=== PATIENT | male | born 1990 | race American Indian/Alaskan Native ===

== ENCOUNTER 2020-07-22 05:28 | Emergency (ER) | payer SELFPAY ==
[2020-07-22 05:58] VITALS: BP 137/80
[2020-07-22] MEDS ORDERED: IBUPROFEN 800 MG TAB PO ONE (07:34)
--- NOTE | 2020-07-22 07:36 | Emergency Department Report ---
ED ENT HPI - General Chief complaint: Dental/Oral Stated complaint: MOUTH PAIN Time Seen by Provider: 07/22/20 07:27 Source: patient Mode of arrival: Ambulatory Limitations: No Limitations - History of Present Illness Initial comments: Patient is a 30-year-old -[place] male that comes to the ER today complaining of right molar dental pain. The dental pain is involving tooth #32. There is no abscess on exam. Patient controlling secretions. ABCs intact. Vital signs are stable. Patient is ambulatory nontoxic [id number] on arrival to the ER. MD complaint: tooth pain -: Gradual, days(s) Severity: moderate Quality: aching Consistency: constant Improves with: none Worsens with: none Associated Symptoms: toothache. denies: fever, cough, gum swelling, pain with swallowing, sore throat, tinnitus, hearing loss, discharge from ear, rhinorrhea - Related Data Previous Rx's Medication Instructions Recorded Last Taken Type Clindamycin [Clindamycin CAP] 300 mg PO Q8H #30 cap 07/22/20 Unknown Rx Ibuprofen [Motrin] 800 mg PO Q8HR PRN #30 tablet 07/22/20 Unknown Rx Allergies Allergy/AdvReac Type Severity Reaction Status Date / Time Penicillins Allergy Unknown Verified 04/01/13 11:07 ED Dental HPI - General Chief complaint: Dental/Oral Stated complaint: MOUTH PAIN Time Seen by Provider: 07/22/20 07:27 Source: patient Mode of arrival: Ambulatory Limitations: No Limitations - Related Data Previous Rx's Medication Instructions Recorded Last Taken Type Clindamycin [Clindamycin CAP] 300 mg PO Q8H #30 cap 07/22/20 Unknown Rx Ibuprofen [Motrin] 800 mg PO Q8HR PRN #30 tablet 07/22/20 Unknown Rx Allergies Allergy/AdvReac Type Severity Reaction Status Date / Time Penicillins Allergy Unknown Verified 04/01/13 11:07 ED Review of Systems ROS: Stated complaint: MOUTH PAIN Other details as noted in HPI Comment: All other systems reviewed and negative ED Past Medical Hx - Past Medical History Previous Medical History?: No - Surgical History Past Surgical History?: Yes Additional Surgical History: foot surgery, penis - Family History Family history: no significant - Social History Smoking Status: Current Some Day Smoker Substance Use Type: None - Medications Home Medications: Home Medications Medication Instructions Recorded Confirmed Last Taken Type Clindamycin [Clindamycin CAP] 300 mg PO Q8H #30 cap 07/22/20 Unknown Rx Ibuprofen [Motrin] 800 mg PO Q8HR PRN #30 tablet 07/22/20 Unknown Rx ED Physical Exam - General Limitations: No Limitations General appearance: alert, in no apparent distress - Head Head exam: Present: atraumatic, normocephalic - Eye Eye exam: Present: normal appearance - ENT ENT exam: Present: mucous membranes moist - Neck Neck exam: Present: normal inspection - Respiratory Respiratory exam: Present: normal lung sounds bilaterally. Absent: respiratory distress - Cardiovascular Cardiovascular Exam: Present: regular rate, normal rhythm. Absent: systolic murmur, diastolic murmur, rubs, gallop - GI/Abdominal GI/Abdominal exam: Present: soft, normal bowel sounds - Rectal Rectal exam: Present: deferred - Extremities Exam Extremities exam: Present: normal inspection - Back Exam Back exam: Present: normal inspection - Neurological Exam Neurological exam: Present: alert, oriented X3 - Psychiatric Psychiatric exam: Present: normal affect, normal mood - Skin Skin exam: Present: warm, dry, intact, normal color. Absent: rash ED Course Vital Signs 07/22/20 07/22/20 05:57 07:37 Temperature 97.6 F Pulse Rate 74 Respiratory 18 20 Rate Blood Pressure 137/80 O2 Sat by Pulse 98 Oximetry ED Medical Decision Making - Medical Decision Making No trismus. Patient is controlling secretions. He has no abscess on exam. Patient was medicated for pain. Note patient has a history of penicillin. I had to give him Clinda. I have given him a coupon cards. Patient being discharged home with discharge plan of care including dental follow-up. He verbalizes the understanding of following up with a dentist because caries can lead to significant health disease. Vital Signs 07/22/20 07/22/20 05:57 07:37 Temperature 97.6 F Pulse Rate 74 Respiratory 18 20 Rate Blood Pressure 137/80 O2 Sat by Pulse 98 Oximetry Patient ambulatory, [id number] nontoxic and taking p.o. on discharge. - Differential Diagnosis dental pain/abscess Critical care attestation.: If time is entered above; I have spent that time in minutes in the direct care of this critically ill patient, excluding procedure time. ED Disposition Clinical Impression: Dental caries Disposition: DC- TO HOME OR SELFCARE Is pt being admited?: No Does the pt Need Aspirin: No Condition: Stable Instructions: Preventive Dental Care, Adult Additional Instructions: follow up with dentist ivonne see referrals provided Prescriptions: Clindamycin [Clindamycin CAP] 300 mg PO Q8H #30 cap Ibuprofen [Motrin] 800 mg PO Q8HR PRN #30 tablet PRN Reason: Pain, Moderate (4-6) Referrals: [facility] [Outside[facility] - 3-5 Days [facility] [Outside] - 3-5 Days Time of Disposition: 07:34
== END 2020-07-22 07:41 | disposition home or self-care (01) ==
LOC: ED 05:28
DX: K02.9 Dental caries, unspecified (principal); F17.200 Nicotine dependence, unspecified, uncomplicated; Z88.0 Allergy status to penicillin; Z79.899 Other long term (current) drug therapy; Z98.890 Other specified postprocedural states
CPT/HCPCS: 99282